=== PATIENT | female | born 1945 ===

== ENCOUNTER 2025-01-24 19:30 | Outpatient (REF) | payer MEDICARE, BC, SELFPAY ==
[2025-01-24 22:33] LABS: HCT 46.8 % (36.0-46.0); HGB 15.7 g/dL (11.2-15.7); MCH 31.5 pg (27.0-33.0); MCHC 33.5 % (32.0-36.0); MCV 94 fL (80-95); MPV 12.1 fL (8.0-11.0); Platelet Count 207 10^3/uL (130-400); RBC 4.99 10^6/uL (3.93-5.22); RDW 12.8 % (11.7-14.6); RDW-SD 43.9 fL; WBC 7.10 10^3/uL (4.4-10.8)
[2025-01-24 23:10] LABS: Hemoglobin A1C 5.9 % (<5.7)
[2025-01-24 23:20] LABS: ALT 23 U/L (14-59); AST 19 U/L (15-37); Albumin 3.7 g/dL (3.4-5.0); Alkaline Phosphatase 78 U/L (46-116); Anion Gap 7.5 mmol/L (3-11); BUN 21 mg/dL (7-18); Bilirubin, Total 1.7 mg/dL (0.2-1.0); CO2 28.5 mmol/L (21.0-32.0); Calcium 9.0 mg/dL (8.5-10.1); Calculated LDL 51 mg/dL (<100); Chloride 107 mmol/L (98-107); Cholesterol 126 mg/dL (<200); Estimated GFR 64.23 (mL/min/1.73m2); Glucose 93 mg/dL (74-106); HDL Cholesterol 52 mg/dL (>or=50); Potassium 4.5 mmol/L (3.5-5.1); Sodium 143 mmol/L (136-145); Total Protein 7.0 g/dL (6.4-8.2); Triglyceride 116 mg/dL (<150); Vitamin D 25 Total 43 ng/mL (30-100)
== END 2025-01-24 19:31 | disposition home or self-care (01) ==
LOC: NCHCN 19:30
PROVIDERS: Visit Provider Internal Medicine
DX: R73.03 Prediabetes (principal); I10 Essential (primary) hypertension; Z86.73 Personal history of transient ischemic attack (TIA), and cerebral infarction without residual deficits
CPT/HCPCS: 80053; 80061; 82306; 85027; 83036